=== PATIENT | male | born 1965 | race Caucasian/White ===

== ENCOUNTER 2019-09-02 08:33 | Emergency (ER) | payer OTHER ==
[~2019-09-02] VITALS: Ht 165.1 cm; Wt 73.5 kg
[2019-09-02] MEDS ORDERED: NORVASC2.5 M1 PO (09:16)
== END 2019-09-02 15:20 | disposition home or self-care (01) ==
LOC: ER 08:33
DX: N20.0 Calculus of kidney (principal); R10.32 Left lower quadrant pain

== ENCOUNTER 2019-10-24 08:22 | Day surgery (SDC) | payer OTHER ==
[~2019-10-24 08:22] MED LIST: NORVASC2.5 M1 PO
== END 2019-10-24 14:35 | disposition home or self-care (01) ==
LOC: AMB-ENDOS 08:22
PROVIDERS: ATTEND Colon & Rectal Surgery
DX: D12.0 Benign neoplasm of cecum (principal); D12.2 Benign neoplasm of ascending colon; K64.2 Third degree hemorrhoids; Z20.828 Contact with and (suspected) exposure to other viral communicable diseases